=== PATIENT | female | born 1955 | race Caucasian/White ===

== ENCOUNTER 2019-10-27 17:39 | Emergency (ER) | payer OTHER ==
[~2019-10-27] VITALS: Ht 157.5 cm; Wt 65.3 kg
[2019-10-27 17:44] VITALS: BP 130/87
--- NOTE | 2019-10-27 18:00 | NUR ---
PT AMBULATED TO ER BED 06
--- NOTE | 2019-10-27 18:03 | NUR ---
64 y/o female from home c/o headache secondary to HTN x 2 wks. Pt states 6/10 headache at this time. Denies blurred vision/dizziness. Awake and alert. VSS medhx: HTN, HLD, thyroid
--- NOTE | 2019-10-27 18:04 | NUR ---
Pt ambulated to restroom with steady gait
[2019-10-27 18:24] VITALS: BP 130/87
--- NOTE | 2019-10-27 18:25 | NUR ---
Patient discharged with v/s stable. Written and verbal after care instructions given and explained. Patient alert, oriented and verbalized understanding of instructions. Ambulatory with . All questions addressed prior to discharge. ID band removed. Patient advised to follow up with PMD. Rx of motrin given. Patient educated on indication of medication including possible reaction and side effects. Opportunity to ask questions provided and answered.
== END 2019-10-27 18:25 | disposition home or self-care (01) ==
LOC: MED 17:39
DX: R51 Headache (principal); I10 Essential (primary) hypertension
CPT/HCPCS: 81002; 99282